=== PATIENT | male | born 1960 | race Caucasian/White ===

== ENCOUNTER 2017-01-14 16:54 | Emergency (ER) | payer OTHER ==
[~2017-01-14] VITALS: Ht 180.3 cm; Wt 75.0 kg
[~2017-01-14 16:54] MED LIST: MESA250 PO; PERC10TA27 PO
[2017-01-14 16:56] VITALS: BP 157/70; PULSE 96; RESP 20; TEMP 98.6; O2SAT 100
[2017-01-14] MEDS ORDERED: ROBA500T PO (17:27)
--- NOTE | 2017-01-14 17:28 | PD ---
HPI Chief Complaint: Back/ Neck Pain or Injury Time Seen by Provider: 17:25 Travel History International Travel<30 days: No Contact w/Intl Traveler<30days: No Traveled to known affect area: No History of Present Illness HPI 56-year-old male presents to the emergency Department with complaint of exacerbation of chronic upper back and neck pain 20 years and is requesting Percocet and Valium. Back pain and neck pain onset today. Denies new or recent injury. Pain is midline to the neck and upper back. Patient states symptoms are similar to chronic exacerbations of chronic back and neck pain. Says its normal for the back pain to just onset. Denies encopresis, incontinence, saddle anesthesias. Denies paresthesias, loss of sensation, decreased range of motion, decreased strength to all extremities. Denies IV drug use or cancer. Denies fever, vomiting. Says he went to the [facility] prior to coming here and there were no doctors to see him. 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 History of Crohn's disease and cannot take ibuprofen. Allergies to penicillin. Has no other medical complaints. No other modifying factors or associated signs and symptoms. PFSH Past Medical History Diminished Hearing: No Gastrointestinal Disorders: Yes (CHRONS) Immunizations Current: Yes Past Surgical History Genitourinary Surgery: Yes (RESECTS) Social History Alcohol Use: No Tobacco Use: No Substance Use: No Allergies-Medications (Allergen,Severity, Reaction): Coded Allergies: Penicillin (Verified Allergy, Severe, 10/28/12) Reported Meds & Prescriptions Reported Meds & Active Scripts Active Robaxin (Methocarbamol) 500 Mg Tab 500 Mg PO QID PRN Percocet 10-325 mg (Oxycodone-Acetaminophen 10-325 mg) 1 Tab 1 Tab PO Q6HPRN PRN PAIN Reported Pentasa 250 mg (Mesalamine) 250 Mg Cap 250 Mg PO QID Review of Systems Except as stated in HPI: all other systems reviewed are Neg Physical Exam Narrative GENERAL: Well-nourished, well-developed male patient, in no acute distress; afebrile, nontoxic-appearing SKIN: Warm and dry. HEAD: Atraumatic. Normocephalic. EYES: Pupils equal and round. No scleral icterus. No injection or drainage. ENT: Mucosa pink and moist. Airway patent. NECK: Moving freely. Trachea midline. No lymphadenopathy. Active rotation of the neck greater than 45 left and right. Midline point tenderness on palpation of the cervical spine. No obvious deformities. CARDIOVASCULAR: Regular rate and rhythm. No murmur appreciated. RESPIRATORY: No accessory muscle use. Clear to auscultation. Breath sounds equal bilaterally. GASTROINTESTINAL: Abdomen soft, non-tender, nondistended. Hepatic and splenic margins not palpable. Bowel sounds are active 4 quadrants. MUSCULOSKELETAL: Bilateral upper extremity for supple and non-tense with 2+ radial pulses and sensory intact with full range of motion and strength. No obvious deformities. No clubbing. No cyanosis. No edema. Ambulatory in room with normal gait. BACK: Midline point tenderness on palpation of upper thoracic spine. No obvious deformities. NEUROLOGICAL: Awake and alert. Oriented 3. No obvious cranial nerve deficits. Motor grossly within normal limits. Normal speech. Moves all extremities. 5/5 strength to all extremities. Sensory intact. PSYCHIATRIC: Appropriate mood and affect; insight and judgment normal. Data Data Last Documented VS Vital Signs Date Time Temp Pulse Resp B/P Pulse Ox O2 Delivery O2 Flow Rate FiO2 01/14/17 16:56 98.6 96 20 157/70 100 Room Air Orders Orphenadrine Inj (Norflex Inj) (01/14/17 17:30) MDM Medical Decision Making Medical Screen Exam Complete: Yes Emergency Medical Condition: Yes Medical Record Reviewed: Yes Differential Diagnosis Chronic back pain, chronic neck pain, muscle spasms Narrative Course 56-year-old male with exacerbation of chronic neck and back pain for 20 years requesting Percocet and Valium. Denies new or recent injury. Patient's pain is midline and this is normal for his back pain. Denies paresthesias, loss of sensation, decreased range of motion, decreased urine tox 20s. Patient is a with normal gait in the room. He is active rotation of his neck or to the 45 left and right. He is moving his neck freely. He is afebrile and nontoxic-appearing. He denies fever, vomiting. Denies IV drug use or cancer. Patient is on Xarelto for history of DVTs. He cannot take ibuprofen secondary to history of Crohn's disease. Norflex administered in the ER. Instructed patient to take Tylenol as directed and as needed for pain. Robaxin prescribed for home. Insect patient to follow up with primary care provider. Patient verbalizes understanding and agreement with treatment plan. Patient is medically cleared and stable for discharge. Discussed reasons to return to the emergency department. Patient agrees with treatment plan. The patients vital signs are stable and the patient is stable for outpatient follow-up and treatment. Patient discharged home, stable and in no acute distress. Diagnosis Primary Impression: Chronic high back pain Additional Impression: Chronic neck pain Referrals: Primary Care Physician Patient Instructions: General Instructions Departure Forms: Tests/Procedures, Work Release Enter return to work date: Jan 16, 2017 Additional Instructions: Tylenol or ibuprofen as directed and as needed to reduce pain Robaxin as prescribed for muscle spasms Get adequate rest Ice and/or heating pad to affected area to reduce pain Avoid aggravating activity; increase activity as tolerated Follow-up with primary care provider Return to the emergency department immediately with worsening symptoms Med/Other Pt SpecificInfo: Prescription(s) given Scripts Methocarbamol (Robaxin)500 Mg [id number] Mg PO QID PRN (MUSCLE SPASM) #30 TAB Ref 0 Prov:Rachel Wolf 01/14/17 Disposition: 01 DISCHARGE HOME Condition: Stable Rachel Wolf Jan 14, 2017 17:28
[2017-01-14] MEDS ORDERED: ORPHENADRINE INJ 60 MG/2 ML AMP IM ONE (17:30)
== END 2017-01-14 18:02 | disposition home or self-care (01) ==
LOC: NEPK 16:54
DX: M54.6 Pain in thoracic spine (principal); M54.2 Cervicalgia; G89.29 Other chronic pain; Z79.01 Long term (current) use of anticoagulants; Z86.718 Personal history of other venous thrombosis and embolism; Z87.19 Personal history of other diseases of the digestive system
CPT/HCPCS: 96372; 99284; J2360